=== PATIENT | female | born 1980 | race Caucasian/White ===

== ENCOUNTER 2020-01-18 08:23 | Outpatient (REF) | payer MEDICAID, SELFPAY ==
[2020-01-18 08:59] LABS: Hematocrit 40.7 % (37-47); Hemoglobin 13.6 g/dl (12.0-16.0); Mean Corpuscular HGB Conc 33.4 g/dl (31.0-35.0); Mean Corpuscular Hemoglobin 30.3 pg (27.0-33.0); Mean Corpuscular Volume 90.6 fL (80-98); Platelet Count 273 X10*3/uL (160-400); Red Blood Count 4.49 X10*6/uL (4.20-5.50)
[2020-01-18 09:30] LABS: Alanine Aminotransferase 17 U/L (0-31); Albumin Level 4.3 g/dL (3.5-5.0); Alkaline Phosphatase 68 U/L (39-117); Anion Gap 11 (12-20); Aspartate Amino Transferase 22 U/L (5-31); Bilirubin Total 0.6 mg/dL (0.0-1.0); Blood Urea Nitrogen 15 mg/dL (9-16); Calcium 9.1 mg/dL (8.4-10.2); Carbon Dioxide 27 mmol/L (22-29); Chloride 103 mmol/L (96-108); Cholesterol 168 mg/dL; Estimated Glomerular Filt Rate > 60; Glucose Fasting 100 mg/dL (60-99); HDL Cholesterol 54 mg/dL; LDL Cholesterol Calculated 101 mg/dl; Potassium 4.2 mmol/l (3.3-5.1); Sodium 137 mmol/L (135-145); Total Protein 7.2 g/dL (6.5-8.0); Triglycerides 67 mg/dL
[2020-01-18 09:50] LABS: Thyroid Stimulating Hormone 1.61 mIU/mL (0.32-4.0)
[2020-01-20 08:06] LABS: HIV AB/AG Nonreactive (Nonreactive); HIV Num 1 0.04 S/CO (0.00-0.99)
[2020-01-20 08:35] LABS: Syphilis Screen Nonreactive (Nonreactive)
== END 2020-01-18 08:24 | disposition home or self-care (01) ==
LOC: HO.LAB 08:23
PROVIDERS: PCP Internal Medicine; Referring Provider Advanced Practice Midwife; Visit Provider Internal Medicine
DX: E66.9 Obesity, unspecified (principal); F41.8 Other specified anxiety disorders; K21.9 Gastro-esophageal reflux disease without esophagitis; Z11.3 Encounter for screening for infections with a predominantly sexual mode of transmission; Z11.4 Encounter for screening for human immunodeficiency virus [HIV]
CPT/HCPCS: 36415; 80053; 80061; 84443; 85027; 86780; 87389

== ENCOUNTER 2020-02-19 07:48 | Outpatient (REF) | payer MEDICAID, SELFPAY ==
--- NOTE | 2020-02-19 07:56 | US_ITS ---
EXAMINATION: US COMPLETE ABDOMEN WITH LIVER ELASTOGRAPHY CLINICAL INFORMATION: Fatty liver. COMPARISON: Ultrasound abdomen 09/24/2013. TECHNIQUE: Real-time imaging of the abdominal viscera. Noninvasive ultrasound liver fibrosis assessment is performed using Chandler ElastPQ point quantification shear wave elastography (pSWE) with a 5 MHz transducer. Multiple elastography samples are obtained. FINDINGS: PANCREAS: Normal. The visualized pancreatic head and body are normal in appearance. The remainder of the pancreas is obscured from visualization by the overlying bowel gas. ABDOMINAL AORTA: The proximal, middle, and distal aortic segments are normal in caliber. INFERIOR VENA CAVA: Visualized portions are normal. LIVER: Normal. The liver demonstrates normal size, contour and echogenicity. No focal lesion or intrahepatic biliary duct dilatation. The right lobe measures 15.7 cm in length. The left lobe measures 11.3 cm in length. There is hepatopedal flow seen in the main portal vein on Doppler exam. Shear wave elastography provides a median stiffness of 1.34 m/s (reference: normal median stiffness is 0.81 - 1.22 m/s). The IQR/median stiffness to assess sampling precision is 0.16 (reference: optimal IQR/median stiffness is under 0.3). GALLBLADDER: The gallbladder has been surgically removed. COMMON BILE DUCT: Normal in caliber measuring 0.29 cm in diameter. RIGHT KIDNEY: Normal. No hydronephrosis. No renal calculi or focal parenchymal lesions. The kidney measures 10.7 cm in maximum dimension. LEFT KIDNEY: Normal. No hydronephrosis. No renal calculi or focal parenchymal lesions. The kidney measures 11.4 cm in maximum dimension. SPLEEN: Normal. The spleen measures 9.7 cm in maximum dimension. FREE FLUID: None. US/US abdomen comp w elastography IMPRESSION: 1. Hepatic steatosis without focal lesion. Rest of the abdominal ultrasound is unremarkable. 2. Elastography: [id number] fibrosis.
[2020-02-19 10:17] LABS: MANUAL DIFF FLAG NO
[2020-02-19 10:21] LABS: Basophils Percent Auto 0.3 % (0-2); Eosinophils Absolute Auto 0.1 X10*3/uL (0.0-0.4); Eosinophils Percent Auto 0.8 % (0-4); Hematocrit 40.5 % (37-47); Hemoglobin 13.5 g/dl (12.0-16.0); Imm Gran Abs Auto 0.07 X10*3/uL (0.00-0.03); Imm Gran Pct Auto 0.7 % (0.0-0.4); Lymphocytes Absolute Auto 2.4 X10*3/uL (1.2-4.9); Lymphocytes Percent Auto 22.8 % (20-40); Mean Corpuscular HGB Conc 33.3 g/dl (31.0-35.0); Mean Corpuscular Hemoglobin 30.3 pg (27.0-33.0); Mean Platelet Volume 10.4 fL (9.4-12.3); Monocytes Absolute Auto 0.8 X10*3/uL (0.1-1.2); Monocytes Percent Auto 7.4 % (2-11); Neutrophils Absolute Auto 7.2 X10*3/uL (2.0-8.3); Platelet Count 288 X10*3/uL (160-400); Red Blood Count 4.45 X10*6/uL (4.20-5.50); Red Cell Distribution Width 12.7 % (11.0-16.0); White Blood Count 10.5 X10*3/uL (4.8-10.8)
[2020-02-19 10:44] LABS: Alanine Aminotransferase 14 U/L (0-31); Albumin Level 4.1 g/dL (3.5-5.0); Alkaline Phosphatase 68 U/L (39-117); Anion Gap 12 (12-20); Aspartate Amino Transferase 22 U/L (5-31); Bilirubin Total 0.4 mg/dL (0.0-1.0); Blood Urea Nitrogen 15 mg/dL (9-16); Calcium 8.6 mg/dL (8.4-10.2); Carbon Dioxide 26 mmol/L (22-29); Chloride 103 mmol/L (96-108); Estimated Glomerular Filt Rate > 60; Glucose Random 89 mg/dL (60-115); Potassium 4.3 mmol/l (3.3-5.1); Sodium 137 mmol/L (135-145)
[2020-06-17 11:35] LABS: HCV Log PCR <1.18 NOT DETECTED; HepC Viral Load <15 NOT DETECTED
== END 2020-02-19 07:49 | disposition home or self-care (01) ==
LOC: HO.US 07:48
PROVIDERS: PCP Internal Medicine; Visit Provider Physician Assistant
DX: K21.9 Gastro-esophageal reflux disease without esophagitis (principal); K76.0 Fatty (change of) liver, not elsewhere classified
CPT/HCPCS: 36415; 76705; 76981; 80053; 85025; 87522

== ENCOUNTER 2020-03-17 12:48 | Day surgery (SDC) | payer MEDICAID, SELFPAY ==
--- NOTE | 2020-03-16 09:32 | HO.ANESPROP2 ---
HPI - Anesthesia Eval Consult details Narrative: 39yo F for Upper Endoscopy PMFSH Past Medical History Medical History Allergic rhinitis Eczema Fatty liver GERD (gastroesophageal reflux disease) Hepatitis C Surgical History Surgical History History of cholecystectomy Social History Social History Smoking Status: Never smoker Meds Allergies Allergy/AdvReac Type Severity Reaction Status Date / Time No Known Allergies Allergy Verified 03/16/20 09:38 Exam Exam Date and Time: March 16, 2020 0932 Pertinent Lab Results Pertinent Lab Results: Laboratory Tests 02/19/20 02/19/20 08:58 08:58 WBC 10.5 Hgb 13.5 Hct 40.5 Plt Count 288 Sodium 137 Potassium 4.3 Chloride 103 Carbon Dioxide 26 BUN 15 Creatinine 0.73 Assessment and Plan Assessment Anesthesia Assessment: Chart Reviewed
[2020-03-17 12:54] VITALS: BP 147/85; PULSE 87; RESP 16; TEMP 36.1; O2SAT 98; BMI 37.7
--- NOTE | 2020-03-17 13:01 | PC.NURSE ---
Addendum entered by Dominique Vora RN 03/17/20 13:21: esssana Original Note: patient states she had the ensure procedure to have no children.
[2020-03-17] MEDS: Lactated Ringers 1,000 ML 100 ML IVCONT (13:13)
--- NOTE | 2020-03-17 13:41 | PC.NURSE ---
patient refusing to take off loer lip ring. aware of consequences if it falls out per procedure. taped lip.
--- NOTE | 2020-03-17 13:47 | HO.ANESPROP2 ---
[facility] Past Medical History Medical History Allergic rhinitis Eczema Fatty liver GERD (gastroesophageal reflux disease) Hepatitis C Surgical History Surgical History History of cholecystectomy Social History Social History Smoking Status: Never smoker Use of substances other than those prescribed or required for medical reasons: No Advance Directives: No Advance Directives Information Provided: No Recently lost weight without trying: No Meds Allergies Allergy/AdvReac Type Severity Reaction Status Date / Time No Known Allergies Allergy Verified 03/16/20 09:38 Exam Exam Date and Time: March 17, 2020 1347 Height,Weight and Vital Signs: Height 5 ft 3 in Weight 96.615 kg Last Vital Signs Temp 97.0 F 03/17/20 12:54 Pulse 87 03/17/20 12:54 Resp 16 03/17/20 12:54 BP 147/85 H 03/17/20 12:54 Pulse Ox 98 03/17/20 12:54 Airway Mallampati Class: III TM Dist: >3cm Neck ROM: Full Loose/Missing/Broken Teeth: No Heart: rrr+[id number] Lungs: cta b/l Assessment and Plan Assessment Anesthesia Assessment: Anesthesia Plan Discussed, PAT Visit and Chart Reviewed Final Anesthetic Review NPO: Yes ASA Class: II Final Preanesthetic Review: No Changes in Pt Med Stat, Meds/Allgs Chart Reviewed, Consent Obtained/Reviewed and Anes Risks/Benef Reviewed Patient Risk: Low Procedure Risk: Low Assessment/Block/Sedation in SS: Assess/Block/Sedation-SS Anesthetic Plan Anesthetic Plan: MAC: Disposition: Standard PACU
--- NOTE | 2020-03-17 14:06 | MHC.SHP ---
Pre-Procedural Eval Section B Chief Complaint: Acid Reflux Relevant Family History (Specify if Yes): No Relevant Social History: None Present Medications: see Short Stay Collaborative assessment Medical History: Significant History (Allergic rhinitis Eczema Fatty liver GERD (gastroesophageal reflux disease) Hepatitis C) History of Previous Operations: Relevant previous surgery/procedure and date(s) (cholecystectomy) Allergies: Allergies Allergy/AdvReac Type Severity Reaction Status Date / Time No Known Allergies Allergy Verified 03/16/20 09:38 Review of Systems Sugical H&P ROS: Negative: Constitution, Cardiovascular, Respiratory, Neurological, Psychiatric, Hem-Onc, Allergic/Immunologic, Gastrointestinal, Genitourinary, Musculoskeletal, Integumentary, Endocrine and Eyes/Ears/Nose/Throat Exam Surgical H&P Exam: Normal: HEENT, Normal: Heart, Normal: Lungs, Normal: Extremities, Normal: Abdomen, Normal: Skin and Normal: Neurological Plan Diagnosis/Plan: Unchanged Patient has been examined and remains a candidate for the planned procedure
--- NOTE | 2020-03-17 14:31 | PM.OP ---
Brief Operative Note Date of Service: 03/17/20 Pre-op diagnosis: GERD, dysphagia Post-op diagnosis: same Procedure: see op note Surgeon: Ashok Mercado MD Anesthesia: MAC Estimated blood loss (mL): 0 Condition: stable Disposition: PACU
--- NOTE | 2020-03-17 14:31 | W.PM.OPN ---
Operative Note Operative Note Date of Service: 03/17/20 Narrative: Procedure Description: EGD FLEXIBLE TRANSORAL UPPER GASTROINTESTINAL ENDOSCOPY UPPER ENDOSCOPY Consent: Indications for the procedure and potential complications of bleeding, perforation, reaction to medications and missed diagnosis were discussed with the patient and informed consent was obtained. Instrument: Olympus GIF H 190 J mid size upper endoscope Monitoring: Vital signs and clinical assessment, continuous EKG monitoring, Pulse oximetry, Carbon Dioxide monitoring and blood pressure monitoring were done throughout the procedure. Procedure: The patient was placed in the left lateral decubitis position and pre-procedure medications were administered and a bite block was placed. The endoscope was inserted into the mouth and advanced under direct vision to the third part of duodenum. A careful inspection was made as the upper endoscope was withdrawn including a retroflexed examination of the proximal stomach; Findings and interventions are described below. Findings: Larynx:normal Esophagus: GE junction at 33 cm, diaphragm hiatus at 33 cm, mild LA grade A esophagitis noted, 20 Fr balloon dilated at GEJ with small tear noted and at UES. Inlet patch noted measured about 1 cm. Stomach: Patchy gastric erythema. Biopsies were obtained. Grade 2 flap valve on retroflexed examination of the cardia. Several fundic gland polyps were noted Duodenum: Normal bulb and descending duodenum, bx taken Intervention: Biopsies as noted above, esophageal balloon dilation Impression/Findings: gastritis esophagitis fundic gland polyps esophageal stricture inlet patch PLAN: await bx results consider switching PPI, adding carafate, GES if sx persist
[2020-03-17 14:39] VITALS: BP 101/56; PULSE 90; RESP 14; TEMP 36.7; O2SAT 99
[2020-03-17 14:54] VITALS: BP 104/79; PULSE 87; RESP 21; TEMP 36.7; O2SAT 98
--- NOTE | 2020-03-17 15:10 | HO.POSTANES ---
Post Anesthesia Evaluation Post Anesthesia Evaluation Vital Signs: Vital Signs Temp Pulse Resp BP Pulse Ox 03/17/20 14:54 98.1 F 87 21 H 104/79 98 03/17/20 14:39 98.1 F 90 14 101/56 L 99 03/17/20 12:54 97.0 F 87 16 147/85 H 98 Anesthesia: Monitored Mental Status: Awake Pain Control: Satisfactory Nausea/Vomiting: None Hydration: Adequate Anesthesia-Related Issues: No Anes. Related Issues
== END 2020-03-17 15:23 | disposition home or self-care (01) ==
PROVIDERS: PCP Internal Medicine; Visit Provider Internal Medicine Gastroenterology
PROC: 0DJ08ZZ Inspection of Upper Intestinal Tract, Via Natural or Artificial Opening Endoscopic (ICD-10-PCS; CPT 43235; principal; 2020-03-17 14:30)
DX: K21.00 Gastro-esophageal reflux disease with esophagitis, without bleeding (principal); R13.10 Dysphagia, unspecified; K29.70 Gastritis, unspecified, without bleeding; K31.7 Polyp of stomach and duodenum; Q39.8 Other congenital malformations of esophagus
CPT/HCPCS: 43239; 43249; 88305; 88342; C1726

== ENCOUNTER → 2020-03-24 09:17 | Outpatient (BNVA) | payer MEDICAID, SELFPAY | PROVIDERS: Visit Provider Physician Assistant | DX: K21.9 Gastro-esophageal reflux disease without esophagitis (principal) | CPT/HCPCS: 99212 ==

== ENCOUNTER → 2020-06-04 10:46 | Outpatient (BNVA) | payer MEDICAID, SELFPAY | PROVIDERS: Visit Provider Physician Assistant ==

== ENCOUNTER → 2020-07-30 11:11 | Outpatient (BNVA) | payer MEDICAID, SELFPAY | PROVIDERS: Visit Provider Physician Assistant ==

== ENCOUNTER → 2021-07-27 11:30 | Outpatient (BNVA) | payer MEDICAID, SELFPAY | PROVIDERS: PCP Internal Medicine; Visit Provider Physician Assistant | DX: Z13.89 Encounter for screening for other disorder (principal) ==

== ENCOUNTER → 2021-08-05 07:37 | Outpatient (REF) | payer MEDICAID, SELFPAY ==
--- NOTE | ~2021-08-05 | NM_ITS ---
EXAMINATION: RADIONUCLIDE SOLID FOOD GASTRIC EMPTYING 4-HOUR STUDY CLINICAL INFORMATION: Gastroesophageal reflux disease without esophagitis. COMPARISON: No previous gastric emptying study is available for comparison. TECHNIQUE: A standard meal consisting of 4 oz of Egg Beaters brand equivalent tagged with 830 microcuries Tc-99m Sulfur Colloid, 8 oz water and 2 slices of toast with jelly was administered orally to the patient. Images were obtained using a dual head gamma camera in the anterior and posterior projections over of the stomach immediately post ingestion and at hourly intervals up to 4 hours post ingestion. The anterior and posterior counts at each time interval were averaged using the geometric mean and expressed as percentage of the immediate post ingestion counts. FINDINGS: There is good visualization of activity in the stomach immediately post ingestion. As the study progresses, there is good clearance of activity from the stomach and visualization of progressively increasing small bowel activity. By the end of the study, there is almost no retention noted in the stomach. Retention in the stomach at each time interval was: 1 hour 55% (normal 37%-90%) 2 hours 16% (normal 30%-60%) 3 hours 5% 4 hours 3% (normal 0%-10%) NM/NM gastric emptying study IMPRESSION: Normal 4-hour solid food gastric emptying study.
== END ==
LOC: HO.NUCMED 07:37
PROVIDERS: PCP Internal Medicine; Visit Provider Physician Assistant
DX: K21.9 Gastro-esophageal reflux disease without esophagitis (principal)
CPT/HCPCS: 78264; A9541

== ENCOUNTER → 2021-09-14 11:18 | Outpatient (BNVA) | payer MEDICAID, SELFPAY | PROVIDERS: PCP Internal Medicine; Visit Provider Physician Assistant | DX: Z13.89 Encounter for screening for other disorder (principal) ==

== ENCOUNTER 2024-07-04 | Outpatient (REF) | payer OTHER, SELFPAY ==
[2024-07-12 14:47] LABS: HPV Genotype 16 Negative (Negative); HPV Genotype 18 Negative (Negative); HPV High Risk Negative (Negative)
--- OUTSIDE RECORDS SUMMARY | 2024-10-10 13:56 | XMS_ITS | Clinical Summary ---
Author Organization [employer] Address [address] [place] [address] 7 [place] [address] Care Team Providers Care Construction Framer Name Role Phone Verenice Anne MD Primary Care Provider [phone] Allergies No known active allergies Medications oxybutynin XL (Ditropan-XL) 10 MG 24 hr tablet take 1 tablet by oral route every day 12/24/19 21 Active esomeprazole (NexIUM) [address] capsule TAKE 1 CAPSULE BY MOUTH DAILY 07/28/19 22 Active Carafate 1 GM/10ML suspension 07/31/19 22 Active Phentermine-Top iramate 3.75-23 MG capsule sustained-relea se 24 hrIndications:C lass 2 obesity due to excess calories without serious comorbidity with body mass index (BMI) of 37.0 to 37.9 in adult Take 3.75 mg by mouth in the morning. 30 capsule 2 08/30/19 23 Active famotidine (Pepcid) 20 MG tabletIndicatio ns:Gastroesopha geal reflux disease without esophagitis Take 1 tablet (20 mg) by mouth 2 times daily. 60 tablet 11 07/25/19 25 026 Active clobetasol (Temovate) 0.05 % ointmentIndicat ions:Psoriasis Apply topically 2 times daily. APPLY THIN LAYER TOPICALLY TO THE AFFECTED AREA TWICE DAILY 60 g 1 07/25/19 25 Active topiramate (Topamax) 25 MG tabletIndicatio ns:Class 2 obesity due to excess calories without serious comorbidity with body mass index (BMI) of 37.0 to 37.9 in adult Take 1 tablet (25 mg) by mouth every 12 (twelve) hours. 60 tablet 11 07/27/19 25 026 Active LORazepam (Ativan) 0.5 MG tabletIndicatio ns:Anxiety TAKE 1 TO 2 TABLETS BY MOUTH 30 MINUTES PRIOR TO THE FLIGHT 4 tablet 09/27/19 25 Active phentermine 15 MG capsuleIndicati ons:Class 2 obesity due to excess calories without serious comorbidity with body mass index (BMI) of 37.0 to 37.9 in adult TAKE 1 CAPSULE(15 MG) BY MOUTH BEFORE BREAKFAST 30 capsule 09/27/19 25 Active phentermine 15 MG capsuleIndicati ons:Class 2 obesity due to excess calories without serious comorbidity with body mass index (BMI) of 37.0 to 37.9 in adult Take 1 capsule (15 mg) by mouth before breakfast. 30 capsule 07/27/19 25 025 Discontinued LORazepam (Ativan) 0.5 MG tabletIndicatio ns:Anxiety 1 to 2 tablets 30 minutes prior to the flight 4 tablet 07/30/19 25 025 Discontinued Active Problems Problem Noted Date Diagnosed Date Psoriasis 07/24/2024 Sore throat 07/08/2022 Assessment & Plan (07/08/2022 [...] Encounters Date Type Department Care Team Description 10/01/2024 Travel 09/25/2024 Refill [facility] [address] [place] [address] Verenice Anne MD Anxiety; Class 2 obesity due to excess calories without serious comorbidity with body mass index (BMI) of 37.0 to 37.9 in adult 07/29/2024 Orders Only [facility] [address] [place] [phone] Erik Malloy CNM Abnormal uterine bleeding (AUB) (Primary Dx); Fibroids 07/29/2024 Telephone [facility] [address] [place] [address] Verenice Anne MD Medication Question 07/26/2024 Orders Only [facility] [address] [place] [address] Verenice Anne MD Anxiety (Primary Dx); Class 2 obesity due to excess calories without serious comorbidity with body mass index (BMI) of 37.0 to 37.9 in adult 07/26/2024 Telephone [facility] [address] [place] [address] Verenice Anne MD PA denied 07/25/2024 Refill [facility] [address] [place] [address] Verenice Anne MD 07/24/2024 10:00 AM EDT Office Visit [facility] [address] [place] [address] Verenice Anne MD Physical exam, annual (Primary Dx); Elevated LFTs; Dietary counseling; Exercise counseling; Class 3 severe obesity due to excess calories with serious comorbidity and body mass index (BMI) of 40.0 to 44.9 in adult; Gastroesophageal reflux disease without esophagitis; Psoriasis; Encounter for screening mammogram for malignant neoplasm of breast 07/24/2024 Travel 07/23/2024 Telephone [facility] [address] [place] [address] Verenice Anne MD Chart Prep 07/16/2024 Patient Outreach [address] [phone] Verenice Anne MD Pre-visit Planning (Pre visit planning LVM ) from Last 3 Months Immunizations Immunization Administration Dates Next Due DTP 12/23/1987, 5,08/30/1983,1983,01/11/1983 [...] drink = 0.6 oz pur e alcohol) Depression Answer Date Recorded Patient Health Questionnaire-9 Score 5 07/24/2024 Patient Health Questionnaire-9 Score 5 07/24/2024 Last PHQ-9: Questionnaire Data Not on file 0 07/24/2024 Housing Stability Answer Date Recorded What is your housing situation today? I have barney phipps 07/24/[address] you li ve. Do you have problems with any of the following? None of the above 07/24/2024 Food Insecurity Answer Date Recorded Within the past 12 months, y ou worried that your food would run out before you got money to buy more: Never True 2024 Within the past 12 months,th e food you bought just didn't last and you didn't have enough money to get more: Sometimes True 07/24/2024 Transportation Answer Date Recorded In the past 12 months, has l ack of transportation kept you from medical appts, meetings, work or from getting things needed for daily living? No 07/24/2024 Utilities Answer Date Recorded In the past 12 months, has t he electric, gas, oil or water company threatened to shut off services in your home? No 07/24/2024 Depression Answer Date Recorded Patient Health Questionnaire-2 Score 1 07/24/2024 Internet Access Answer Date Recorded Internet Access Q1 Yes 07/24/2024 Internet Access Q2 Not on file 07/24/2024 Comments No Intention Date Recorded No desire to become (finding) 0 07/04/2024 Sex and Gender Information Value Date Recorded Sex Assigned at Female 02/14/2022 10:18 AM EDT Legal Sex Female 10:18 AM EDT Gender Identity Choose not to disclose 10:18 AM EDT Sexual Orientation Choose not to disclose 2021 10:18 AM EDT Last Filed Vital Signs Vital Sign Reading Time Taken Comments Blood Pressure 140/78 07/24/2024 9:27 AM EDT Pulse 83 07/24/2024 9:27 AM EDT Temperature 36.4 C (97.6 F) 07/24/2024 9:27 AM EDT Respiratory Rate 18 07/24/2024 9:27 AM EDT Oxygen Saturation 96% 07/24/2024 9:27 AM EDT Inhaled Oxygen Concentration - - Weight 104 kg (230 lb 6 oz) 07/24/2024 9:27 AM E DT Height 160 cm (5' 3 ) 07/24/2024 9:27 AM EDT Body Mass Index 40.81 07/24/2024 9:27 AM EDT Plan of Treatment Upcoming Encounters Date Type Department Care Team (Late st Contact Info) Description 12/23/2024 3:15 PM EDT Office Visit [facility] [address] [place] [address] Verenice Anne MD [address] [place] [address] Health Maintenance Due Date Last Done Comments Lipid Panel 1980 Hepatitis B Vaccines (3 of 3 - 3-dose series) 02/08/2000 12/14/1999, 06/08/1998 Mammogram 2022 COVID-19 Vaccine (3 - season) 2023 07/26/2020, 07/06/2020 DTaP/Tdap/Td Vaccines (7 - Td or Tdap) 02/13/2024 02/12/2014, 06/08/1998, 08/18/1997, Additional history exists Influenza Vaccine (Season Ended) 2024 01/07/2020, 05/08/2018, 01/23/2017, Additional history exists Family Planning (PISQ) 07/04/2025 07/04/2024 Alcohol/Substance Use Screening 07/24/2025 07/24/2024 Depression Screening 07/24/2025 07/24/2024, 07/25/19 SDOH Screening 07/24/2025 07/24/2024 Tobacco Screening 07/24/2025 07/24/2024 Disability Screening 10/01/2025 10/01/2024 Cervical Cancer Screening 07/04/2029 HPV/Cotest 07/04/2029 07/04/2024, 01/07/2020 Pap Smear 07/04/2029 07/04/2024, 01/07/2020 Zoster Vaccines (1 of 2) 2032 RSV Patients and Patients Aged 60 years or older (1 - 1-dose 75+ series) 2057 HIB Vaccines Completed 03/17/1986 IPV Vaccines Completed 12/23/1987, 04/1985, 08/30/1983, Additional history exists HIV Screening Completed 07/04/2024, 01/18/2020 Hepatitis C Screening Completed 07/04/2024, 025 HPV Vaccines Aged Out No longer eligi ble based on patient's age to complete this topic Hepatitis A Vaccines Aged Out No long er eligible based on patient's age to complete this topic Meningococcal B Vaccine Aged Out No l onger eligible based on patient's age to complete this topic Meningococcal Vaccine Aged Out No dennise alex eligible based on patient's age to complete this topic Pneumococcal Vaccine: Pediatrics (0 to 5 Years) and At-Risk Patients (6 to 49) Years Aged Out No longer eligible based on patient's age to complete this topic RSV under 20 months Aged Out No longe r eligible based on patient's age to complete this topic Rotavirus Vaccines Aged Out No longer eligible based on patient's age to complete this topic Procedures Procedure Name Priority Date/Time Associated Diagnosis Comments US PELVIS COMPLETE Urgent 07/26/2024 Abnormal uterine bleeding (AUB) US PELVIS TRANSVAGINAL Urgent 07/26/2024 Abnormal uterine bleeding (AUB) HEPATITIS C AB W/REFL TO HCV RNA, QN, PCR Routine 07/04/2024 11:53 AM EDT Screening examination for venereal disease HIV 1/2 ANTIGEN/ANTIBODY, FOURTH GENERATION W/RFL Routine 07/04/2024 11:53 AM EDT Screening examination for venereal disease HPV DNA, LOW/HIGH RISK Routine 07/04/2024 11:21 AM EDT PAP SMEAR Routine 07/04/2024 11:21 AM EDT Cervical cancer screening from Last 3 Months or Most Recently Relevant to Health Maintenance Results * Us Pelvis complete (07/26/2024) Anatomical Region Laterality Modality [facility] Final R esult * US Pelvis Transvaginal (07/26/2024) Anatomical Region Laterality Modality [facility]trasound [facility] Final R esult * (ABNORMAL) Hepatitis C Antibody with Reflex to HCV, RNA, Quantitative, Real- Time PCR (07/04/2024 11:53 AM EDT) Hepatitis C Antibody Reactive( A) Nonreactive [facility] Comment:Presumptive evidence of antibodies to HCV. Blood Venous blood specimen / Unknown 07/04/2024 11:53 AM EDT 07/04/2024 1:06 PM EDT Erik [facility] LAB BLOOD ORDERABLES Kamila l Result [facility] [address] [place] [address] [phone] * HIV-1/2 Antigen and Antibodies, Fourth Generation, with Reflexes (07/04/2024 11:53 AM EDT) HIV AB/AG Nonreactive Nonreactive [facility] Comment:HIV-1 p24 Ag and/or HIV-1/HIV-2 Ab not detected.A test result that is nonreactive does not exclude thepossibility of exposure to or infection with HIV-1 and/orHIV-2. Nonreactive results in this assay for individualswith prior exposure to HIV-1 and/or HIV-2 may be due toantigen and antibody levels that are below the limit ofdetection of this assay.The [facility] HIV Ag/Ab Combo assay result andsupplemental assay results should be interpreted inconjunction with the patient's clinical presentation,history and other laboratory results. If the results areinconsistent with clinical evidence, additional testing issuggested to confirm the result. Blood Venous blood specimen / Unknown 07/04/2024 11:53 AM EDT 07/04/2024 1:06 PM EDT us Erik Malloy [facility] BLOOD ORDERABLES Kamila velasco Result [facility] [address] [place] [phone] * HPV DNA, Low/High Risk (07/04/2024 11:21 AM EDT) HPV High Risk Negative Negative [facility] HPV Genotype 16 Negative Negative [facility] HPV Genotype 18 Negative Negative [facility] Comment:HPV testing performe d at [facility] (CLIA#[id number]), [address] [place] [address].Testing for HPV was performed using the [employer]system. The presence of HPV in the female genital tract isassociated with a number of diseases, including cervicalcarcinoma. The HPV DNA high risk pool tests for HPV 31, 33,35, 39, 45, 51, 52, 56, 58, 59, 66 and 68. The testing forHPV 16 and 18 genotypes has also been performed. A positiveresult indicates detection of nucleic acid sequences fromone or more subtypes, whereas a negative result indicatessuch sequences were not detected. 07/04/2024 11:2 1 AM EDT 07/05/2024 1:41 PM EDT us Erik Malloy [facility] BLOOD ORDERABLES Kamila rod Result [facility] [address] [place] [phone] * Pap Smear (07/04/2024 11:21 AM EDT) Swab 07/04/2024 11:2 1 AM EDT 07/05/2024 6:00 AM EDT Narrative [facility] - 07/12/2024 10:31 AM EDT ----- ------- Name: Krystle Calhoun Age/Sex: 43/F : 1980 Unit#: [id number] Attend Dr: Re07/04/24 Status: PRE REF Location: [facility] Disch: ----- ------- SPEC : [id number] RECD: 07/05/24 STATUS: AMINAH BOWER NUM: [id number] RISSA: 07/04/24-1121 [facility] DR: ERIK MALLOY [facility] ENTERED: 07/05/24 SP TYPE: Pap Smr OT DR: ORDERED: Pap Smear Addendum Addendum 1 Entered: 07/12/24 HPV High Risk: Negative HPV Genotyping 16: Negative HPV Genotyping 18: Negative Addendum Signed (signature on file) JUSTINO Rabago (ASCP) 07/12/24 1031 ----- ------- Interpretation Satisfactory for evaluation. Negative for intraepithelial lesion or malignancy. Clinical Information LMP: Unknown date Previous PAP test: 2019, NIL/neg Material Received Cervix ----- ------- Signed (signature on file) JUSTINO Rabago (ASCP) 07/11/24 1041 ----- ------- END OF REPORT us Erik Fredrick CN LAB CYTOLOGY ORDERABLES F inal Result [facility] [address] [place] [address] [phone] from Last 3 Months or Most Recently Relevant to Health Maintenance [place] [id number] , [address] [address] Care Teams Construction Framer Relationship Specialty Start Date End Date Verenice Anne MD [address] [place] [phone] PCP - General Internal Medicine 09/27/11
== END 2024-07-04 00:01 | disposition home or self-care (01) ==
LOC: HO.LNP
PROVIDERS: Visit Provider Advanced Practice Midwife
DX: Z12.4 Encounter for screening for malignant neoplasm of cervix (principal)
CPT/HCPCS: 87626; 88175

== ENCOUNTER 2024-07-04 11:41 | Outpatient (REF) | payer MEDICAID, SELFPAY ==
[2024-07-04 13:58] LABS: Syphilis Screen Nonreactive (Nonreactive)
[2024-07-04 14:03] LABS: TSH reflex Free T4 1.88 uIU/mL (0.32-4.0)
[2024-07-04 14:04] LABS: HBS Num1 13.36 mIU/mL (0-7.99); HBc Num1 0.13 S/CO (0.00-0.79); HBsAGNum1 0.29 S/CO (0.00-0.99); HIV AB/AG Nonreactive (Nonreactive); HIV Num 1 0.06 S/CO (0.00-0.99); Hepatitis B Core Antibody Nonreactive (Nonreactive); Hepatitis B Surface Antigen Negative (Negative); ~HepC Num1 11.23 S/CO (0.00-0.79); ~Hepatitis B Surface Antibody REACTIVE (Nonreactive); ~Hepatitis C Antibody Reactive (Nonreactive)
--- OUTSIDE RECORDS SUMMARY | 2024-07-04 14:06 | XMS_ITS | Encounter Summary ---
Author Organization [email or web address] Address [address] [address] Care Team Providers Care Is Manager Name Role Phone Verenice Anne MD Primary Care Provider [phone] Reason for Visit * Reason Onset Date Comments Insurance 07/02/2024 Encounter Details Date Type Department Care Team ([facility] Contact Info) Description 07/02/2024 Telephone [facility] MEDICINE [address] [place] [address] Verenice Anne MD [address] [place] [address] Insurance Social History Tobacco Use Types Packs/Day Years Used Date Smoking Tobacco: Never Smokeless Tobacco: Never Alcohol Use Standard Drinks/Week Comments Never 0 (1 standard drink = 0.6 oz pur e alcohol) Comments Unknown Sex and Gender Information Value Date Recorded Sex Assigned at Female 02/14/2022 10:18 AM EDT Legal Sex Female 10:18 AM EDT Gender Identity Choose not to disclose 10:18 AM EDT Sexual Orientation Choose not to disclose 2021 10:18 AM EDT documented as of this encounter Miscellaneous Notes * Telephone Encounter - Lu Mariano - 07/02/2024 9:16 AM EDT Called Patient left vm, advised that insurance is inactive and asked if Patient has alt insurance to update on chart. documented in this encounter Plan of Treatment Upcoming Encounters Date Type Department Care Team ([facility] st Contact Info) Description 07/24/2024 10:00 AM EDT Office Visit [facility] CHC MED & PEDS [address] [place] [address] Verenice Anne MD [address] [place] [address] documented as of this encounter Visit Diagnoses Not on filedocumented in this encounter Care Teams Is Manager Relationship Specialty Start Date End Date Verenice Anne MD [address] [place] [address] PCP - General Internal Medicine 09/27/11 documented as of this encounter
--- OUTSIDE RECORDS SUMMARY | 2024-07-04 14:07 | XMS_ITS | Continuity of Care Document ---
Author Organization [facility] [employer] Address [address] [address] Insurance Providers Payer Plan Claims Address Claims Phone Policy Number Group Number Relation Employer Guarantor Name Guarantor Guarantor Address Guarantor Phone Rosanne meghan [facility] [id number] Chris Calhoun [address] [place] [id number] Medic aid [facility] [id number] Chris Calhoun [address] [place] [id number] OTHER MEDIC AID [address] [place] [address] tel:[phone] Chris Calhoun [address] [place] [address] Problems Condition ICD9 code ICD10 code SNOMED code Start Date End Date S tatus Encounter for screening for other metabolic disorders Z13.228 Results No Results Allergies, adverse reactions, alerts No known allergies and adverse reactions Medications No administered medications reported Vital Signs No vital signs reported Social History No smoking Hx information available
--- OUTSIDE RECORDS SUMMARY | 2024-07-04 14:07 | XMS_ITS | Encounter Summary ---
Author Organization [employer] Address [address] [facility] [address], [place] [address] Care Team Providers Care Cotton Bag Sewer Name Role Phone Verenice Anne MD Primary Care Provider [phone] Encounter Details Date Type Department Care Team ([facility] Contact Info) Description 09/02/2022 Orders Only [facility] CHC MED & PEDS [address] [place], [place] [id number] Verenice Anne MD [address] [place] [address] Class 2 obesity due to excess calories without serious comorbidity with body mass index (BMI) of 37.0 to 37.9 in adult (Primary Dx) Social History Tobacco Use Types Packs/Day Years [...] not to disclose 2021 10:18 AM EDT COVID-19 Exposure Response Date Recorded In the last 10 days, have yo u been in contact with someone who was confirmed or suspected to have Coronavirus/COVID-19? No / Unsure 08/29/2022 12:52 PM EDT documented as of this encounter Plan of Treatment Upcoming Encounters Date Type Department Care Team ([facility] Contact Info) Description 07/24/2024 10:00 AM EDT Office Visit [facility] MED & PEDS [address] [place] [address] Verenice Anne MD [address] [place] [address] documented as of this encounter Visit Diagnoses Diagnosis Class 2 obesity due to excess calories without serious comorbidity with body mass index (BMI) of 37.0 to 37.9 in adult- Primary documented in this encounter Care Teams Cotton Bag Sewer Relationship Specialty Start Date End Date Verenice Anne MD [address] [place] [address] PCP - General Internal Medicine 09/27/11 documented as of this encounter
--- OUTSIDE RECORDS SUMMARY | 2024-07-04 14:07 | XMS_ITS | Clinical Summary ---
Author Organization [facility] Address [address] [place] [address] Care Team Providers Care Yarding Engineer Name Role Phone Unavailable Primary Care Provider Unavailabl e Social History Tobacco Use Types Packs/Day Years Used Date Smoking Tobacco: Never Assessed Sex and Gender Information Value Date Recorded Sex Assigned at Not on file Gender Identity Not on file Sexual Orientation Not on file Plan of Treatment Health Maintenance Due Date Last Done Comments Hepatitis C Virus Screening 1980 HIV Screening 09/28/1995 DTaP/Tdap/Td Vaccines (1 - Tdap) 2001 Hepatitis B Vaccines (1 of 3 - 19+ 3-dose series) 2001 Pap Smear (Ages 21-65) 09/28/2003 Mammogram 2022 Influenza Vaccine 11/16/2023 COVID-19 Vaccine (2023-2 5 season) 2023 HPV Vaccines Aged Out No longer eligi ble based on patient's age to complete this topic Pneumococcal Vaccine: Pediat gilberto (0-5 Years) and At-Risk Patients (6 to 49 Years) Aged Out No longer eligible b ased on patient's age to complete this topic
--- OUTSIDE RECORDS SUMMARY | 2024-07-04 14:07 | XMS_ITS | Clinical Summary ---
Author Organization [employer] Address [address] [place] [address] [address] [address] Care Team Providers Care Operator Bearer [employer] Name Role Phone Verenice Anne MD Primary Care Provider Allergies No known active allergies Medications clobetasol (Temovate) 0.05 % ointment APPLY THIN LAYER TOPICALLY TO THE AFFECTED AREA TWICE DAILY 2 Active oxybutynin XL (Ditropan-XL) 10 MG 24 hr tablet take 1 tablet by oral route every day 1 Active esomeprazole (NexIUM) [address] capsule TAKE 1 CAPSULE BY MOUTH DAILY 2 Active Carafate 1 GM/10ML suspension 2 Active famotidine (Pepcid) 20 MG tabletIndication s:Gastroesophage al reflux disease without esophagitis Take 1 tablet (20 mg) by mouth 2 times daily. 60 tablet 11 3 Active Phentermine-Topi ramate 3.75-23 MG capsule sustained-releas e 24 hrIndications:Cl ass 2 obesity due to excess calories without serious comorbidity with body mass index (BMI) of 37.0 to 37.9 in adult Take 3.75 mg by mouth in the morning. 30 capsule 2 3 Active phentermine 15 MG capsuleIndicatio ns:Class 2 obesity due to excess calories without serious comorbidity with body mass index (BMI) of 37.0 to 37.9 in adult Take 1 capsule (15 mg) by mouth before breakfast. 30 capsule 3 Active Active Problems Problem Noted Date Diagnosed Date Sore throat 07/08/2022 Assessment & Plan (07/08/2022 9:57 AM EDT): Patient refers having sore throat for the past 4 days, refers last episode of fever was 2 days ago, no nausea/vomiting, shortness of breath. Told to rest, do warm water gargles with salt and lemon, may take tylenol/ibuprofen Elevated LFTs 09/19/2013 Obesity 11/23/2007 Allergic rhinitis 08/02/2007 Gastroesophageal reflux disease 06/19/2007 Resolved Problems Problem Noted Date Diagnosed Date Resolved Date Acute pharyngitis 02/22/2010 04/07/2022 Cellulitis and abscess of buttock 11/23/2007 04/07/2022 Acute upper respiratory infection 08/02/2007 04/07/2022 Contact dermatitis 06/19/2007 Encounters Date Type Department Care Team Description 07/04/2024 11:00 AM EDT Procedure Visit [facility] [address] [place] [phone] Enid Alcala CNM Cervical cancer screening (Primary Dx); Abnormal uterine bleeding (AUB); Screening examination for venereal disease; Stress incontinence 07/04/2024 Travel 07/02/2024 Telephone [facility] [address] [place] [phone] Verenice Anne MD Insurance from Last 3 Months Immunizations Name Administration Dates Next Due DTP 12/23/1987, 5,08/30/1983,1983,01/11/1983 Hep B, Adolescent or Pediatric 12/14/1999,1998 Hib (HbOC) 03/17/1986 IPV 12/23/1987, 6,08/30/1983,1983,01/11/1983 Influenza Injectable Quadriv alant Preservative Free IIV4 MDCK 05/08/2018 Influenza injectable quadriv alent IIV4 with preservative 12/24/2014 Influenza injectable quadriv alent preservative free 01/07/2020,01/23/2017 Influenza, IIV3, injectable 02/12/2014 MMR 03/28/1994,05/28/1984 Pfizer Covid-19 Vaccine 12+ 07/26/2020, 1 TD (adult), 2 Lf tetanus tox oid, preservative free, adsorbed 06/08/1998,08/18/1997 Tdap 02/12/2014 Family History Medical History Relation Name Comments Breast cancer Neg Hx Colon cancer Neg Hx Ovarian cancer Neg Hx Uterine cancer Neg Hx Social History Tobacco Use Types Packs/Day Years Used Date Smoking Tobacco: Never Smokeless Tobacco: Never Tobacco Cessation:Counseling Given: Not Answered Alcohol Use Standard Drinks/Week Comments Never 0 (1 standard drink = 0.6 oz pur e alcohol) Comments No Sex and Gender Information Value Date Recorded Sex Assigned at Female 02/14/2022 10:18 AM EDT Legal Sex Female 10:18 AM EDT Gender Identity Choose not to disclose 2 10:18 AM EDT Sexual Orientation Choose not to disclose 2021 10:18 AM EDT Last Filed Vital Signs Vital Sign Reading Time Taken Comments Blood Pressure 131/73 07/04/2024 11:00 AM EDT Pulse 97 07/04/2024 11:00 AM EDT Temperature 36.4 ??C (97.6 ??F) 07/04/2024 11:00 AM E DT Respiratory Rate 18 07/04/2024 11:00 AM EDT Oxygen Saturation 99% 07/04/2024 11:00 AM EDT Inhaled Oxygen Concentration - - Weight 104 kg (228 lb 6.4 oz) 07/04/2024 11:00 A M EDT Height 160 cm (5' 3 ) 09/13/2022 3:19 PM EDT Body Mass Index 40.46 09/13/2022 3:19 PM EDT Plan of Treatment Upcoming Encounters Date Type Department Care Team (Late st Contact Info) Description 07/24/2024 10:00 AM EDT Office Visit [facility] [address] [place] [phone] Verenice Anne MD [address] [place] [address] Health Maintenance Due Date Last Done Comments Depression Screening 1982 Lipid Panel 1982 SDOH Screening 1982 Alcohol/Substance Use Screening 1994 Hepatitis B Vaccines (3 of 3 - 3-dose series) 02/08/2000 12/14/1999, 06/08/1998 Hepatitis C Screening 2000 07/04/2024 Mammogram 2022 COVID-19 Vaccine (3 - season) 2023 07/26/2020, 07/06/2020 Influenza Vaccine (#1) 2023 , 05/08/2018, 01/23/2017, Additional history exists DTaP/Tdap/Td Vaccines (7 - Td or Tdap) 02/13/2024 02/12/2014, 06/08/1998, 08/18/1997, Additional history exists Cervical Cancer Screening 01/06/2025 HPV/Cotest 01/06/2025 01/07/2020 Pap Smear 01/06/2025 01/07/2020 Family Planning (PISQ) 07/04/2025 07/04/2024 Tobacco Screening 07/04/2025 07/04/2024 Zoster Vaccines (1 of 2) 2032 RSV Patients and Patients Aged 60 years or older (1 - 1-dose 75+ series) 2057 HIB Vaccines Completed 03/17/1986 IPV Vaccines Completed 12/23/1987, 04/1985, 08/30/1983, Additional history exists HIV Screening Completed 07/04/2024, 01/18/2020 HPV Vaccines Aged Out No longer eligi ble based on patient's age to complete this topic Hepatitis A Vaccines Aged Out No long er eligible based on patient's age to complete this topic Meningococcal Vaccine Aged Out No dennise alex eligible based on patient's age to complete this topic Pneumococcal Vaccine: Pediatrics (0 to 5 Years) and At-Risk Patients (6 to 49) Years) Aged Out No longer eligible based on patient's age to complete this topic RSV under 20 months Aged Out No longe r eligible based on patient's age to complete this topic Rotavirus Vaccines Aged Out No longer eligible based on patient's age to complete this topic Procedures Procedure Name Priority Date/Time Associated Diagnosis Comments HIV 1/2 ANTIGEN/ANTIBODY, FOURTH GENERATION W/RFL Routine 07/04/2024 11:53 AM EDT Screening examination for venereal disease HEPATITIS C AB W/REFL TO HCV RNA, QN, PCR Routine 07/04/2024 11:53 AM EDT Screening examination for venereal disease HEPATITIS B SURFACE ANTIBODY, QUALITATIVE Routine 07/04/2024 11:53 AM EDT Screening examination for venereal disease HEPATITIS B SURFACE ANTIGEN, EIA Routine 07/04/2024 11:53 AM EDT Screening examination for venereal disease HEPATITIS B CORE AB TOTAL Routine 07/04/2024 11:53 AM EDT Screening examination for venereal disease SYPHILIS SCREEN Routine 07/04/2024 11:52 AM EDT Screening examination for venereal disease TSH W/REFLEX TO FT4 Routine 07/04/2024 1 1:52 AM EDT Abnormal uterine bleeding (AUB) THINPREP PAP AND HPV MRNA E6/E7 Routine 01/07/2020 3:43 PM EDT from Last 3 Months or Most Recently Relevant to Health Maintenance Results * (ABNORMAL) Hepatitis C Antibody with Reflex to HCV, RNA, Quantitative, Real- Time PCR (07/04/2024 11:53 AM EDT) Hepatitis C Antibody Reactive( A) Nonreactive [facility] Comment:Presumptive evidence of antibodies to HCV. Blood Venous blood specimen / Unknown 07/04/2024 11:53 AM EDT 07/04/2024 1:06 PM EDT us Enid HERRERA LAB BLOOD ORDERABLES Kamila velasco Result [facility] [address] [place] [phone] * Hepatitis B surface antigen, EIA (07/04/2024 11:53 AM EDT) Hepatitis B Surface Ag Negative Negative [facility] Blood Venous blood specimen / Unknown 07/04/2024 11:53 AM EDT 07/04/2024 1:06 PM EDT [facility] Kamila l Result Performing Organization Address City/Special Care [facility]/ZIP Co de Phone Number [facility] [address] [place] [phone] * Hepatitis B Core Antibody, Total (07/04/2024 11:53 AM EDT) Pathologist [facility] Hepatitis B Core Antibody Nonreactive Nonreactive [facility] Blood Venous blood specimen / Unknown 07/04/2024 11:53 AM EDT 07/04/2024 1:06 PM EDT [facility] LAB BLOOD ORDERABLES Kamila l Result Performing Organization Address City/[facility]/ZIP Co de Phone Number [facility] [address] [place] [phone] * HIV-1/2 Antigen and Antibodies, Fourth Generation, with Reflexes (07/04/2024 11:53 AM EDT) Pathologist [facility] HIV AB/AG Nonreactive Nonreactive [facility] Comment:HIV-1 p24 Ag and/or HIV-1/HIV-2 Ab not detected.A test result that is nonreactive does not exclude thepossibility of exposure to or infection with HIV-1 and/orHIV-2. Nonreactive results in this assay for individualswith prior exposure to HIV-1 and/or HIV-2 may be due toantigen and antibody levels that are below the limit ofdetection of this assay.The [employer] HIV Ag/Ab Combo assay result andsupplemental assay results should be interpreted inconjunction with the patient's clinical presentation,history and other laboratory results. If the results areinconsistent with clinical evidence, additional testing issuggested to confirm the result. Blood Venous blood specimen / Unknown 07/04/2024 11:53 AM EDT 07/04/2024 1:06 PM EDT [facility] LAB BLOOD ORDERABLES Kamila l Result Performing Organization Address [facility]/ZIP Co de Phone Number [facility] [address] [place] [phone] * Hepatitis B Surface Antibody, Qualitative (07/04/2024 11:53 AM EDT) Pathologist [facility] ~Hepatitis B Surface Antibody REACTIVE Nonreactive [facility] Comment:REACTIVE: > 11.99 mI U/mL Blood Venous blood specimen / Unknown 07/04/2024 11:53 AM EDT 07/04/2024 1:06 PM EDT [facility] LAB BLOOD ORDERABLES Kamila l Result Performing Organization Address [facility] Co de Phone Number [facility] [address] [place] [phone] * Syphilis Screen (07/04/2024 11:52 AM EDT) [facility] Syphilis Screen Nonreactive Nonreactive [facility] Blood Venous blood specimen / Unknown 07/04/2024 11:52 AM EDT 07/04/2024 1:06 PM EDT [facility] LAB BLOOD ORDERABLES Kamila l Result Performing Organization Address [facility] Co de Phone Number [facility] [address] [place] [phone] * TSH W/Reflex to FT4 (07/04/2024 11:52 AM EDT) [facility] TSH reflex Free T4 1.88 0.32 - 4.0 uIU/mL [facility] Blood Venous blood specimen / Unknown 07/04/2024 11:52 AM EDT 07/04/2024 1:06 PM EDT Enid Alcala [facility] LAB BLOOD ORDERABLES Kamila velasco Result [facility] [address] [place] [phone] * THINPREP PAP AND HPV mRNA E6/E7 (01/07/2020 3:43 PM EDT) Clinical Information: [facility] Comment:None given COMMENT [facility] Comment: EXPLANATORY NOTE: ? The Pap is a screening test for cervical cancer. It is ?? not a diagnostic test and is subject to false negative ?? and false positive results. It is most reliable when a ?? satisfactory sample, regularly obtained, is submitted ?? with relevant clinical findings and history, and when ?? the Pap result is evaluated along with historic and ?? current clinical information. ?? Rivet Tosser: [facility] Comment: CXP, CT(ASCP) CT screening location: [address] ??[id number] Interpretation/Res ult: [facility] Comment:Negative for intraep ithelial lesion or malignancy. LMP: [facility] Comment:NONE GIVEN Prev. BX: NONE GIVEN [facility] Prev. PAP: [facility] Comment:NONE GIVEN SOURCE: [facility] Comment:None given Statement Of Adequacy: [facility] Comment: Satisfactory for evaluation. Endocervical/transformation zone component present. Age and/or menstrual status not provided HPV nRNA E6/E7 Not Detected Not Detected [facility] Comment: This test was performed using the APTIMA HPV Assay ([employer] ?? This assay detects E6/E7 viral messenger RNA (mRNA) from 14 high-risk HPV types (16,18,31,33,35,39,45,51,52,56,58,59,66,68). ?? The analytical performance characteristics of this assay have been determined by [employer]. The modifications have not been cleared or approved by the FDA. This assay has been validated pursuant to the CLIA regulations and is used for clinical purposes. Clinical Information: [facility] Comment:None given COMMENT [facility] Comment: EXPLANATORY NOTE: ? The Pap is a screening test for cervical cancer. It is ?? not a diagnostic test and is subject to false negative ?? and false positive results. It is most reliable when a ?? satisfactory sample, regularly obtained, is submitted ?? with relevant clinical findings and history, and when ?? the Pap result is evaluated along with historic and ?? current clinical information. ?? Rivet Tosser: [facility] Comment: CXP, CT(ASCP) CT screening location: [address] ??[address] Interpretation/Res ult: [facility] Comment:Negative for intraep ithelial lesion or malignancy. LMP: [facility] Comment:NONE GIVEN Prev. BX: NONE GIVEN [facility] Prev. PAP: [facility] Comment:NONE GIVEN SOURCE: [facility] Comment:None given Statement Of Adequacy: [facility] Comment: Satisfactory for evaluation. Endocervical/transformation zone component present. Age and/or menstrual status not provided HPV nRNA E6/E7 Not Detected Not Detected [facility] Comment: This test was performed using the APTIMA HPV Assay ([employer] ?? This assay detects E6/E7 viral messenger RNA (mRNA) from 14 high-risk HPV types (16,18,31,33,35,39,45,51,52,56,58,59,66,68). ?? The analytical performance characteristics of this assay have been determined by [employer]. The modifications have not been cleared or approved by the FDA. This assay has been validated pursuant to the CLIA regulations and is used for clinical purposes. 01/07/2020 3:43 PM EDT us Enid Alcala CNM LAB PATHOLOGY ORDERABLES Final Result [facility] [address] from Last 3 Months or Most Recently Relevant to Health Maintenance Insurance [facility] [id number] , [address] [address] Care Teams Operator [employer] Systems Relationship Specialty Start Date End Date Verenice Anne MD [address] [place] [phone] PCP - General Internal Medicine 09/27/11
--- OUTSIDE RECORDS SUMMARY | 2024-07-04 14:07 | XMS_ITS | Encounter Summary ---
Author Organization [employer] Address [address] [place] [address] Care Team Providers Care Corporate Trust Officer Name Role Phone Verenice Anne MD Primary Care Provider [phone] Reason for Referral * Consultation (Urgent) - Pending Review Specialty Diagnoses / Procedures Referred By Camden t Referred To Contact Urogynecology Diagnoses Stress incontinence Enid Alcala CNM [address] [place] [address] Phone: tel: fax: Referral ID Status Reason Start Date Expiration Date Visits Requested Visits Authorized [id number] Pending Review Specialty Services Required 07/04/2024 07/04/2025 1 1 * Imaging (Urgent) - Authorized Specialty Diagnoses / Procedures Referred By Contnima t Referred To Contact Radiology Diagnoses Abnormal uterine bleeding (AUB) Procedures Us Pelvis complete Enid Alcala CNM [address] [place] [address] Phone: tel: fax: [facility] [address] [address] Phone: tel: fax: Referral ID Status Reason Start Date Expiration Date V isits Requested Visits Authorized [id number] Authorized 07/04/2024 07/04/2025 1 1 * Imaging (Urgent) - Authorized Specialty Diagnoses / Procedures Referred By Camden t Referred To Contact Radiology Diagnoses Abnormal uterine bleeding (AUB) Procedures US Pelvis Transvaginal Enid Alcala CNM [address] [place] [address] Phone: tel: fax: [facility], [address] [place] [phone] Phone: tel: fax: Referral ID Status Reason Start Date Expiration Date V isits Requested Visits Authorized [id number] Authorized 07/04/2024 07/04/2025 1 1 Reason for Visit * Reason Comments Gynecologic Exam Encounter Details Date Type Department Care Team (Latest Contact Info) Description 07/04/2024 11:00 AM EDT Procedure Visit [facility]IC[facility] [address] [place] [address] Enid Alcala CNM [address] [place], [place] [phone] Cervical cancer screening (Primary Dx); Abnormal uterine bleeding (AUB); Screening examination for venereal disease; Stress incontinence Social History Tobacco Use Types Packs/Day Years [...] AM EDT documented as of this encounter Last Filed Vital Signs Vital Sign Reading [...] oz) 07/04/2024 11:00 A M EDT Height - - Body Mass Index 40.46 09/13/2022 3:19 PM EDT documented in this encounter Progress Notes * Enid Alcala CNM - 07/04/2024 11:00 AM EDT Subjective Patient ID: Krystle Calhoun is a 43 y.o. adult who presents for pap Last visit with me in 08/2022, ultrasound and TSH ordered for AUB, no results in chart. She doesn't think she had tests done. Still notes abnormal bleeding. Monthly menses x 3-4 days but frequent spotting in between periods. Passed large clot with cramping this month. Pap NIL/HPV neg, gonorrhea/chlamydia neg 12/2019. Has Essure. G3, senior living AMAB partner, no safety concerns. Patient seen in conjunction with [employer]MMANUEL Sánchez student. I was present for and confirmed all pertinent elements in the history, exam, assessment of the patient, and the plan of care, and agree with all findings. Review of Systems Genitourinary: Positive for menstrual problem and vaginal bleeding. Negative for dyspareunia, dysuria, frequency, genital sores, hematuria, pelvic pain, urgency, vaginal discharge and vaginal pain. No abnormal pap, no breast pain, no breast mass, no nipple discharge Objective BP 131/73 (BP Location: Left arm, Patient Position: Sitting, BP Cuff Size: Large adult) Pulse 97 Temp 97.6 ??F (36.4 ??C) (Temporal) Resp 18 Wt 228 lb 6.4 oz (104 kg) SpO2 99% BMI 40.46 kg/m?? Physical Exam Exam conducted with a lip of shank cutter present (Enid Alcala CNM). Constitutional: Appearance: Normal appearance. Chest: Breasts: Right: Normal. No swelling, bleeding, inverted nipple, mass, nipple discharge, skin change or tenderness. Left: Normal. No swelling, bleeding, inverted nipple, mass, nipple discharge, skin change or tenderness. Genitourinary: General: Normal vulva. Labia: Right: No rash, tenderness, lesion or injury. Left: No rash, tenderness, lesion or injury. Vagina: Normal. No signs of injury and foreign body. No vaginal discharge, erythema, tenderness, bleeding or lesions. Cervix: No cervical motion tenderness, discharge, friability, lesion, erythema, cervical bleeding or eversion. Uterus: Normal. Not enlarged and not tender. Adnexa: Right adnexa normal and left adnexa normal. Right: No mass, tenderness or fullness. Left: No mass, tenderness or fullness. Comments: Mild cystocele with Valsalva, good tone with Kegels Lymphadenopathy: Upper Body: Right upper body: No supraclavicular or axillary adenopathy. Left upper body: No supraclavicular or axillary adenopathy. Neurological: Mental Status: Krystle is alert. Psychiatric: Mood and Affect: Mood normal. Behavior: Behavior normal. Assessment/Plan Diagnoses and all orders for this visit: Cervical cancer screening - Pap Smear Cotest today. Repeat in 5 years if normal/neg. Reviewed mammography guidelines. No family history breast/senior safety support manager cancer, first at 20. She would like to defer mammogram for now. Advised to begin by age 47. Report changes in breast exam or familycancer history. Abnormal uterine bleeding (AUB) - TSH W/Reflex to FT4; Future - US Pelvis Transvaginal; Future - Us Pelvis complete; Future Will send pap based STI testing, check TSH and ultrasound. Reviewed will likely need referral to outside CONTAMINATION CONSULTANT for Endometrial biopsy after ultrasound and labs. Screening examination for venereal disease - STI testing add on (NG, CT, Trich) - Hepatitis B Core Antibody, Total; Future - Hepatitis B surface antigen, EIA; Future - Hepatitis B Surface Antibody, Qualitative; Future - Hepatitis C Antibody with Reflex to HCV, RNA, Quantitative, Real-Time PCR; Future - Syphilis Screen; Future - HIV-1/2 Antigen and Antibodies, Fourth Generation, with Reflexes; Future Pap based and serum STI labs ordered. Will contact with results. Stress incontinence Kegels not helpful. Previously on oxybutynin which was not fully helpful either. Will refer to urogyn for further evaluation/treatment options. documented in this encounter Plan of Treatment Upcoming Encounters Date Type Department Care Team (Late st Contact Info) Description 07/24/2024 10:00 AM EDT Office Visit [facility]C MED & PEDS [address] [place] [address] Verenice Anne MD [address] [place] [address] Scheduled Orders Name Type Priority Associated Diagnoses Orde r Schedule Pap Smear Pathology and Cytology Routine Cervical cancer screening Ordered: 07/04/2024 STI testing add on (NG, CT, Trich) Pathology and Cytology Routine Screening examination for venereal disease Ordered: 07/04/2024 US Pelvis Transvaginal Imaging Urgent Abnormal uterine bleeding (AUB) Expected: 07/04/2024, Expires: 07/04/2025 Us Pelvis complete Imaging Urgent Abnormal uterine bleeding (AUB) Expected: 07/04/2024, Expires: 07/04/2025 Scheduled Referrals Name Type Priority Associated Diagnoses Orde r Schedule Referral to Urogynecology Outpatient Referral Urgent Stress incontinence Expected: 07/04/2024 (Approximate), Expires: 07/04/2025 documented as of this encounter Procedures Procedure Name Priority Date/Time Associated Diagnosis Comments HEPATITIS C AB W/REFL TO HCV RNA, QN, PCR Routine 07/04/2024 11:53 AM EDT Screening examination for venereal disease HEPATITIS B SURFACE ANTIGEN, EIA Routine 07/04/2024 11:53 AM EDT Screening examination for venereal disease HEPATITIS B CORE AB TOTAL Routine 07/04/2024 11:53 AM EDT Screening examination for venereal disease HIV 1/2 ANTIGEN/ANTIBODY, FOURTH GENERATION W/RFL Routine 07/04/2024 11:53 AM EDT Screening examination for venereal disease HEPATITIS B SURFACE ANTIBODY, QUALITATIVE Routine 07/04/2024 11:53 AM EDT Screening examination for venereal disease SYPHILIS SCREEN Routine 07/04/2024 11:52 AM EDT Screening examination for venereal disease TSH W/REFLEX TO FT4 Routine 07/04/2024 1 1:52 AM EDT Abnormal uterine bleeding (AUB) documented in this encounter Results * HIV-1/2 Antigen and Antibodies, Fourth Generation, with Reflexes (07/04/2024 11:53 AM EDT) HIV AB/AG Nonreactive Nonreactive [facility] Comment:HIV-1 p24 Ag and/or HIV-1/HIV-2 Ab not detected.A test result that is nonreactive does not exclude thepossibility of exposure to or infection with HIV-1 and/orHIV-2. Nonreactive results in this assay for individualswith prior exposure to HIV-1 and/or HIV-2 may be due toantigen and antibody levels that are below the limit ofdetection of this assay.[employer] HIV Ag/Ab Combo assay result andsupplemental assay results should be interpreted inconjunction with the patient's clinical presentation,history and other laboratory results. If the results areinconsistent with clinical evidence, additional testing issuggested to confirm the result. Blood Venous blood specimen / Unknown 07/04/2024 11:53 AM EDT 07/04/2024 1:06 PM EDT Enid Alcala [facility] ORDERABLES Kamila l Result [facility] [address] [place] [phone] * (ABNORMAL) Hepatitis C Antibody with Reflex to HCV, RNA, Quantitative, Real- Time PCR (07/04/2024 11:53 AM EDT) Hepatitis C Antibody Reactive( A) Nonreactive [facility] Comment:Presumptive evidence of antibodies to HCV. Blood Venous blood specimen / Unknown 07/04/2024 11:53 AM EDT 07/04/2024 1:06 PM EDT Enid Fredrick [facility] BLOOD ORDERABLES Kamila l Result Performing Organization Address [facility] Co de Phone Number [facility] [address] [place] [phone] * Hepatitis B Surface Antibody, Qualitative (07/04/2024 11:53 AM EDT) ~Hepatitis B Surface Antibody REACTIVE Nonreactive [facility] Comment:REACTIVE: > 11.99 mI U/mL Blood Venous blood specimen / Unknown 07/04/2024 11:53 AM EDT 07/04/2024 1:06 PM EDT Enid Alcala [facility] BLOOD ORDERABLES Kamila l Result Performing Organization Address [facility] Phone Number [facility] [address] [place] [phone] * Hepatitis B surface antigen, EIA (07/04/2024 11:53 AM EDT) [facility] Hepatitis B Surface Ag Negative Negative [facility] Blood Venous blood specimen / Unknown 07/04/2024 11:53 AM EDT 07/04/2024 1:06 PM EDT Enid Alcala [facility] BLOOD ORDERABLES Kamila l Result Performing Organization Address [facility] Co de Phone Number [facility] [address] [place] [phone] * Hepatitis B Core Antibody, Total (07/04/2024 11:53 AM EDT) Pathologist [facility] Hepatitis B Core Antibody Nonreactive Nonreactive [facility] Blood Venous blood specimen / Unknown 07/04/2024 11:53 AM EDT 07/04/2024 1:06 PM EDT Enid Alcala [facility] BLOOD ORDERABLES Kamila l Result Performing Organization Address [facility]/ZIP Co de Phone Number [facility] [address] [place] [phone] * Syphilis Screen (07/04/2024 11:52 AM EDT) Syphilis Screen Nonreactive Nonreactive [facility] Blood Venous blood specimen / Unknown 07/04/2024 11:52 AM EDT 07/04/2024 1:06 PM EDT [facility]LO[facility] ORDERABLES Kamila l Result Performing Organization Address [facility] Co de Phone Number [facility] [address] [place] [phone] * TSH W/Reflex to FT4 (07/04/2024 11:52 AM EDT) TSH reflex Free T4 1.88 0.32 - 4.0 uIU/mL [facility] Blood Venous blood specimen / Unknown 07/04/2024 11:52 AM EDT 07/04/2024 1:06 PM EDT [facility] BLOOD ORDERABLES Kamila l Result Performing Organization Address [facility] Co de Phone Number [facility] [address] [place] [place] [phone] documented in this encounter Visit Diagnoses Diagnosis Cervical cancer screening- Primary Screening for malignant neoplasm of the cervix Abnormal uterine bleeding (AUB) Screening examination for venereal disease Stress incontinence Female stress incontinence documented in this encounter Care Teams Corporate Trust Officer Relationship Specialty Start Date End Date Verenice Anne MD [address] [place] [phone] PCP - General Internal Medicine 09/27/11 documented as of this encounter
--- OUTSIDE RECORDS SUMMARY | 2024-07-04 14:07 | XMS_ITS | Encounter Summary ---
Author Organization [facility] Address [address] [place] [address] Care Team Providers Care Car Dumper Operator Helper Name Role Phone Unavailable Primary Care Provider Unavailabl e Encounter Details Date Type Department Care Team (Latest Contact Info) Description 06/22/2020 Lab Requisition [facility] COVID [address] Through [address] [place] [address] [address] [place] [phone] Toñito Chand MD [address] [place] [address] Encounter for laboratory testing for COVID-19 virus Social History Tobacco Use Types Packs/Day Years Used Date Smoking Tobacco: Never Assessed Sex and Gender Information Value Date Recorded Sex Assigned at Not on file Gender Identity Not on file Sexual Orientation Not on file COVID-19 Exposure Response Date Recorded In the last month, have you been in contact with someone who was confirmed or suspected to have Coronavirus / COVID-19? No / Unsure 06/22/2020 1:10 PM EST documented as of this encounter Plan of Treatment Not on file documented as of this encounter Procedures Procedure Name Priority Date/Time Associated Diagnosis Comments COVID-19 (SARS-COV-2) - [facility] Routine 06/22/2020 1:22 PM EST Encounter for laboratory testing for COVID-19 virus [ICD-10-CM] documented in this encounter Results * COVID-19 (SARS-COV-2) ([facility]) (06/22/2020 1:22 PM EST) COVID-19 RT-PCR NOT-DETEC LIZA Not-Detec liza 06/23/2020 1:29 PM EST [facility] Comment:Interpretation: The viral RNA was not detected, making the COVID-19 diagnosis less likely. Clinical correlation is highly recommended.Final report signed by Eric Dukes, Ph.D., Laboratory DirectorTests performed at [facility] Nasopharyngeal swab / Unknown 06/22/2020 1:22 PM EST 06/22/2020 1:22 PM EST Narrative [facility] - 06/23/2020 1:29 PM EST Performed by [facility] [address] [place] [address], CLIA# [id number] and [place] License# [id number] Toñito Chand MD MICROBIOLOGY - GENER AL ORDERABLES CHERRY JACKSON documented in this encounter Visit Diagnoses Diagnosis Encounter for laboratory testing for COVID-19 virus documented in this encounter
--- OUTSIDE RECORDS SUMMARY | 2024-07-04 14:07 | XMS_ITS | Encounter Summary ---
Author Organization [employer] Address [address] [place] [address] Care Team Providers Care World Renowned Chef And Restaurant Owner Name Role Phone Verenice Anne MD Primary Care Provider [phone] Encounter Details Date Type Department Care Team (Latest Contact Info) Description 07/04/2024 Travel Social History Tobacco Use Types Packs/Day Years [...] AM EDT documented as of this encounter Plan of Treatment Upcoming Encounters Date Type Department Care Team (Late st Contact Info) Description 07/24/2024 10:00 AM EDT Office Visit [facility] CHC MED & PEDS [address] [place] [address] Verenice Anne MD [address] [place] [address] documented as of this encounter Visit Diagnoses Not on filedocumented in this encounter Care Teams World Renowned Chef And Restaurant Owner Relationship Specialty Start Date End Date Verenice Anne MD [address] [place] [address] PCP - General Internal Medicine 09/27/11 documented as of this encounter
[2024-07-06 15:58] LABS: HCV Log PCR <1.18 NOT DETECTED Log IU/mL (NOT DETECTED); HepC Viral Load <15 NOT DETECTED IU/mL (NOT DETECTED)
== END 2024-07-04 11:42 | disposition home or self-care (01) ==
LOC: HO.HHCL 11:41
PROVIDERS: Visit Provider Advanced Practice Midwife
DX: Z11.3 Encounter for screening for infections with a predominantly sexual mode of transmission (principal); Z11.4 Encounter for screening for human immunodeficiency virus [HIV]; N93.9 Abnormal uterine and vaginal bleeding, unspecified
CPT/HCPCS: 36415; 84443; 86704; 86706; 86780; 86803; 87340; 87389; 87491; 87522; 87591; 87661